=== PATIENT | female | born 1955 | race Hispanic/Latino ===

== ENCOUNTER 2019-09-21 11:06 | Outpatient (CLI) | payer BC ==
--- NOTE | 2019-09-21 11:46 | RAD ---
2 VIEW CHEST: Date: 09/21/2019 HISTORY: Shingles. Psoriasis. FINDINGS: Lung wild are clear. No infiltrate. Heart and mediastinum unremarkable. Osseous structures unremark able. IMPRESSION: Unremarkable chest. POS: AGW
== END 2019-09-21 11:07 | disposition home or self-care (01) ==
LOC: BICRAD 11:06
PROVIDERS: ATTEND Internal Medicine Rheumatology
DX: L40.9 Psoriasis, unspecified (principal)
CPT/HCPCS: 71046